=== PATIENT | female | born 1985 | race Caucasian/White ===

== ENCOUNTER 2017-09-01 13:59 | Inpatient (IN) | payer OTHER ==
--- NOTE | 2017-09-01 15:17 | PDOC ---
History of Present Illness - General Chief Complaint: Edema Stated Complaint: SWELLING TO EYE Time Seen by Provider: 09/01/17 14:25 History Source: Patient Exam Limitations: No Limitations - History of Present Illness Initial Comments: This is a 32 YOF with h/o gestational DM who p/w 3 days of swollen right facial pimple with acute worsening of the swelling this morning when she awakened. She notes that she was squeezing the pimple (located just right of the nose) over the past three days. The swelling spread from the locale of the pimple all the way to her right restoration this morning, and the patient notes it is difficult to keep her right eye open d/t the swelling. She notes chills last night, as well as a generalized headache over the past week (attributes this to finals week in school), but denies any vision changes, fever, nausea, vomiting, diarrhea, difficulty speaking or swallowing, swelling to the floor of her mouth, throat closing sensation, SOB, or chest pain. She has never had these symptoms before, and denies any h/o MRSA infection or immune compromise. Past History - Past Medical History Allergies/Adverse Reactions: Allergies Allergy/AdvReac Type Severity Reaction Status Date / Time No Known Drug Allergies Allergy Verified 09/01/17 14:16 berries, apples, cherries Allergy Severe anaphylaxis Uncoded 09/01/17 14:16 Home Medications: Ambulatory Orders NK [No Known Home Medication] 09/01/17 Asthma: No Cancer: No Cardiac Disorders: No COPD: No Diabetes: No HTN: No Seizures: No Thyroid Disease: No Other medical history: denies. - Surgical History GI Surgery: Yes (gastric sleeve) - Reproductive History (#): 2 Para: 0 Therapeutic (s) & number: No Spontaneous : 1 - Suicide/Smoking/Psychosocial Hx Smoking Status: No Smoking History: Never smoked Number of Cigarettes Smoked Daily: 0 Hx Alcohol Use: No Drug/Substance Use Hx: No Hx Substance Use Treatment: No Review of Systems - Review of Systems Able to Perform ROS?: Yes Constitutional: Yes: Chills (last night, resolved). No: Fever, Unexplained wgt Loss HEENTM: Yes: Other (facial pain/swelling). No: Nose Congestion, Throat Pain Respiratory: No: Cough, Shortness of Breath Cardiac (ROS): No: Chest Pain, Palpitations ABD/GI: No: Constipated, Diarrhea, Nausea, Vomiting : No: Burning, Dysuria Musculoskeletal: No: Back Pain, Neck Pain Integumentary: No: Bruising, Rash Neurological: No: Headache, Numbness, Tingling, Weakness, Dizziness Endocrine: No: Unexplained Weight Gain, Unexplained Weight Loss *Physical Exam - Vital Signs Last Vital Signs Temp Pulse Resp BP Pulse Ox 98.7 F 76 16 114/68 99 09/01/17 14:16 09/01/17 14:16 09/01/17 14:16 09/01/17 14:16 09/01/17 14:16 - Physical Exam General Appearance: Yes: Nourished, Other (generally well appearing adult female answering questions appropriately, obvious right superior facial swelling extending from the right lateral inferior nose to the superior right restoration, eyelid swollen almost shut). No: Apparent Distress HEENT: positive: EOMI, Normal Voice, Hearing Grossly Normal, Other (no trismus, no drooling, tolerating secretions). negative: Scleral Icterus (R), Scleral Icterus (L), Nasal Congestion Neck: positive: Trachea midline, Supple. negative: Tender, Rigid Respiratory/Chest: positive: Lungs Clear, Normal Breath Sounds. negative: Respiratory Distress, Crackles, Rhonchi, Stridor, Wheezing Cardiovascular: positive: Regular Rhythm, Regular Rate. negative: Murmur Gastrointestinal/Abdominal: positive: Normal Bowel Sounds, Soft. negative: Tender, Organomegaly, Pulsatile Mass, Guarding Musculoskeletal: positive: Normal Inspection. negative: Decreased Range of Motion, Vertebral Tenderness Extremity: positive: Normal Capillary Refill, Normal Inspection, Normal Range of Motion. negative: Tender, Cyanosis Integumentary: positive: Normal Color, Dry, Warm. 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 Initial Vital Signs Temp Pulse Resp BP Pulse Ox 98.7 F 76 16 114/68 99 09/01/17 14:16 09/01/17 14:16 09/01/17 14:16 09/01/17 14:16 09/01/17 14:16 Exam: no trismus, no drooling, tolerating secretions, obvious right superior facial swelling extending from the right lateral inferior nose to the superior right restoration, eyelid swollen almost shut DDX IBNLT: simple facial cellulitis, preseptal cellulitis septal cellulitis, gangrenous or necrotizing soft tissue infection, intracerebral involvement i.e. meninges or cerebral venous sinus, etc. W/U ordered: CBCD CMP serum preg BCx CT Head and Facial Bones TX ordered: Clindamycin (1st like tx for preseptal cellulitis) Laboratory Tests 09/01/17 09/01/17 09/01/17 15:40 15:40 15:40 WBC 11.4 H RBC 3.76 Hgb 11.6 Hct 34.9 MCV 93.0 MCH 30.9 MCHC 33.2 RDW 12.4 D Plt Count 216 D MPV 9.1 D Neutrophils % 70.2 Lymphocytes % 18.5 D Monocytes % 9.1 Eosinophils % 1.8 Basophils % 0.4 Sodium 141 Potassium 4.0 Chloride 106 Carbon Dioxide 29 Anion Gap 6 L BUN 15 Creatinine 0.7 Creat Clearance w eGFR > 60 Random Glucose 76 Calcium 8.7 Total Bilirubin 0.4 D AST 12 L ALT 28 Alkaline Phosphatase 70 Total Protein 7.2 Albumin 3.6 Total Amylase 68 Serum , Qual Negative 09/01/17 15:40 WBC RBC Hgb Hct MCV MCH MCHC RDW Plt Count MPV Neutrophils % Lymphocytes % Monocytes % Eosinophils % Basophils % Sodium Potassium Chloride Carbon Dioxide Anion Gap BUN Creatinine Creat Clearance w eGFR Random Glucose Calcium Total Bilirubin AST ALT Alkaline Phosphatase Total Protein Albumin Total Amylase Cancelled Serum , Qual CT: Repeat VS: Reassessment: The patient is unsafe for discharge at this time. They require further hospital observation, workup, and treatment. Microblog sent to [facility] for admission. Spoke with [facility], in agreement patient to be admitted to: Med/Surg Obs Decision to Admit order placed to [facility] covering attending Dr. Craig. *DC/Admit/Observation/Transfer Diagnosis at time of Disposition: Facial cellulitis - Discharge Dispostion Condition at time of disposition: Guarded Decision to Admit order: Yes - Referrals Referrals: Ethan Parsons [Primary Care Provider] - - Patient Instructions - Post Discharge Activity
[2017-09-01 15:48] LABS: BASO % 0.4 % (0-2.0); EOS % 1.8 % (0-4.5); HEMATOCRIT 34.9 % (32.4-45.2); HEMOGLOBIN 11.6 GM/dL (10.7-15.3); LYMPH % 18.5 % (8-40); MCH 30.9 pg (25.7-33.7); MCHC 33.2 g/dl (32.0-36.0); MEAN PLT VOLUME 9.1 fl (7.5-11.1); MONO % 9.1 % (3.8-10.2); NEUT % 70.2 % (42.8-82.8); PLATELET COUNT 216 K/MM3 (134-434); RBC 3.76 M/mm3 (3.60-5.2); RDW 12.4 % (11.6-15.6); WHITE BLOOD COUNT 11.4 K/mm3 (4.0-10.0)
[2017-09-01 16:15] LABS: ALBUMIN 3.6 g/dl (3.4-5.0); AMYLASE 68 U/L (25-115); ANION GAP 6 (8-16); BILIRUBIN,TOTAL 0.4 mg/dL (0.2-1.0); BLOOD UREA NITROGEN 15 mg/dL (7-18); CALCIUM 8.7 mg/dL (8.5-10.1); CHLORIDE 106 mmol/L (98-107); CO2 29 mmol/L (21-32); CREATININE 0.7 mg/dL (0.55-1.02); GLUCOSE,RANDOM 76 mg/dL (74-106); SGOT/AST 12 U/L (15-37); SODIUM 141 mmol/L (136-145); TOT PROT 7.2 g/dl (6.4-8.2)
[2017-09-01 16:22] LABS: ALK PHOS 70 U/L (45-117)
[2017-09-01 16:27] LABS: SGPT/ALT 28 U/L (12-78)
--- NOTE | 2017-09-01 17:58 | PDOC ---
Attending Attestation - Resident Resident Name: Karlie Fleming - ED Attending Attestation I have performed the following: I have examined & evaluated the patient, The case was reviewed & discussed with the resident, I agree w/resident's findings & plan, Exceptions are as noted - HPI HPI: 09/01/17 17:17 "Pt is a 32 yo F with no PMHx who presents to the ED with R facial swelling. Patient states that she noticed a pimple there 2 days ago. She reports squeezing the pimple several times for relief however the area became more erythematous and swollen. Today pt states the right side of her face became very swollen and painful. Pt denies F/C. Denies any purulent drainage. Denies pain in her eye. Denies pain with EOM. Denies blurred vision. Pt denies h/o allergic reactions, denies taking any new medications or eating new foods. PCP: Dr. Ethan Parsons " - Physicial Exam PE: 09/01/17 17:18 "GENERAL: Awake, alert, and fully oriented, in no acute distress. HEAD: No signs of trauma EYES: PERRLA, EOMI, sclera anicteric, conjunctiva clear ENT: + R cheek with edema and tenderness, no fluctuance, no drainage NECK: Nontender, no stepoffs, Normal ROM, supple, no lymphadenopathy, JVD, or masses LUNGS: Breath sounds equal, clear to auscultation bilaterally. No wheezes, and no crackles HEART: Regular rate and rhythm, normal S1 and S2, no murmurs, rubs or gallops ABDOMEN: Soft, nontender, normoactive bowel sounds. No guarding, no rebound. No masses EXTREMITIES: Normal range of motion, no edema. No clubbing or cyanosis. No cords, erythema, or tenderness NEUROLOGICAL: Cranial nerves II through XII intact. 5/5 strength and sensation in all extremities, Normal speech, normal gait, normal cerebellar function SKIN: Warm, Dry, normal turgor, no rashes or lesions noted. " - Medical Decision Making 09/01/17 18:24 32 F with facial cellulitis and possible preseptal cellulitis. No evidence of orbital cellulitis on exam. No evidence of systemic illness. - Labs, cultures - CT facial bones - IV abx - admit obs
[2017-09-01] MEDS ORDERED: CLINDAMYCIN IVPB 300 MG in DEXTROSE 5%-WATER - 48 ML IVPB ONE (17:59)
[2017-09-01] MEDS ORDERED: CLINDAMYCIN PHOSPHATE 600 MG/4 ML VIAL ONE (19:13)
--- NOTE | 2017-09-01 19:21 | HP ---
CHIEF COMPLAINT: facial swelling PCP: Bariatric Surgeon: Dr. Hess at [facility] HISTORY OF PRESENT ILLNESS: 32yo woman with PMH of Gestational DM who presented to ED with 3 days of worsening R facial swelling after extracting pimple near R naso-labial fold. She endorses subjective fever and chills last night. The swelling had spread to eye and R confucianism today, which prompted her to seek medical attention. She c/o of difficulty opening R eye due to swelling, but denies any changes in vision or pain with eye movement. Denies any difficulty swallowing or speaking or sore throat. Patient was taking Motrin 800mg at home for pain relief with good effect. ER course was notable for: (1) Non-con CT Maxillofacial: R facial/periorbital soft tissue swelling extending into R infratemporal fossa/lateral to R maxillary sinus; + submandibular/cervical prominent LNs (2) 1 x Clindamycin IV (3) Recent Travel: none PAST MEDICAL HISTORY: see HPI PAST SURGICAL HISTORY: gastric sleeve - 10/2016 x1 breast reduction Social History: Smoking: denies Alcohol: none Drugs: none Family History: non-contributory Allergies No Known Drug Allergies Allergy (Verified 09/01/17 14:16) berries, apples, cherries Allergy (Severe, Uncoded 09/01/17 14:16) anaphylaxis HOME MEDICATIONS: Home Medications Medication Instructions Recorded NK [No Known Home Medication] 09/01/17 REVIEW OF SYSTEMS CONSTITUTIONAL: +fever, chills Absent: diaphoresis, generalized weakness, malaise, loss of appetite, weight change HEENT: Absent: rhinorrhea, nasal congestion, throat pain, throat swelling, difficulty swallowing, mouth swelling, ear pain, eye pain, visual changes CARDIOVASCULAR: Absent: chest pain, syncope, palpitations, irregular heart rate, lightheadedness , peripheral edema RESPIRATORY: Absent: cough, shortness of breath, dyspnea with exertion, orthopnea, wheezing, stridor, hemoptysis GASTROINTESTINAL: Absent: abdominal pain, abdominal distension, nausea, vomiting, diarrhea, constipation, melena, hematochezia GENITOURINARY: Absent: dysuria, frequency, urgency, hesitancy, hematuria, flank pain, genital pain MUSCULOSKELETAL: Absent: myalgia, arthralgia, joint swelling, back pain, neck pain SKIN: Absent: rash, itching, pallor HEMATOLOGIC/IMMUNOLOGIC: Absent: easy bleeding, easy bruising, lymphadenopathy, frequent infections ENDOCRINE: Absent: unexplained weight gain, unexplained weight loss, heat intolerance, cold intolerance NEUROLOGIC: +headache Absent:, focal weakness or paresthesias, dizziness, unsteady gait, seizure, mental status changes, bladder or bowel incontinence PSYCHIATRIC: Absent: anxiety, depression, suicidal or homicidal ideation, hallucinations. PHYSICAL EXAMINATION Vital Signs - 24 hr 09/01/17 14:16 Temperature 98.7 F Pulse Rate 76 Respiratory 16 Rate Blood Pressure 114/68 O2 Sat by Pulse 99 Oximetry (%) GENERAL: aaox3, nad, eating Fuentes[employer] HEENT: +R upper facial swelling occluding partially occluding R eye, +erythema/ warmth/ttp, EOMI, sclera anicteric, conjunctiva clear, oropharynx clear without exudates NECK: supple, +R submandibular LAD LUNGS: CTAB HEART: rrr, normal s1/s2, no m/r/g ABDOMEN: Soft, NTND LOWER EXTREMITIES: 2+ DP pulses, wwp, no edema NEUROLOGICAL: Cranial nerves II-XII grossly intact, but exam limited to due facial swelling; sensation grossly intact. Normal speech. SKIN: Warm, dry, normal turgor, no rashes or ecchymosis noted CBC, BMP 09/01/17 15:40 09/01/17 15:40 Hepatic Panel Total Bilirubin 0.4 mg/dL (0.2-1.0) D 09/01/17 15:40 AST 12 U/L (15-37) L 09/01/17 15:40 ALT 28 U/L (12-78) 09/01/17 15:40 Alkaline Phosphatase 70 U/L (45-117) 09/01/17 15:40 Albumin 3.6 g/dl (3.4-5.0) 09/01/17 15:40 Laboratory Tests 09/01/17 15:40 Serum , Qual Negative ASSESSMENT/PLAN: 32yo woman who presents with R facial cellulitis x 3 days. #R facial cellulitis with periorbital swelling -ID consulted -Received 1x Clindamycin in ED. Will give 1x dose Vancomycin and Zosyn now. -F/u blood cultures -Check hgb A1c -Trend WBC/fever curve #FEN NS 500c IV bolus + encourage PO intake lytes wnl Regular diet #PPX - HSQ Q8H #DISPO: med/surg FULL code Plan d/w Dr. Magi Hawkins MD PGY1 - Internal Medicine, Night [employer] Visit type - Emergency Visit Emergency Visit: Yes ED Registration Date: 09/01/17 Care time: The patient presented to the Emergency Department on the above date and was hospitalized for further evaluation of their emergent condition. - New Patient This patient is new to me today: Yes Date on this admission: 09/01/17 - Critical Care Critical Care patient: No Hospitalist Screening - Colonoscopy Questionnaire Colonoscopy Questionnaire: Colonoscopy Questionnaire - Patient: 50 - 75 years old and never had a screening colonoscopy: No History of colon or rectal polyps, or CA: Unknown History of IBD, Crohn's disease or UC: Unknown History of abdominal radiation therapy as a child: Unknown - Relative: 1 with colon or rectal CA, or polyps at age 60 or younger: Unknown Colon or rectal CA diagnosed at age 45 or younger: Unknown Multiple relatives with colon or rectal CA: Unknown - Outcome: Screening Result: Negative Screen
[2017-09-01] MEDS ORDERED: KETOROLAC TROMETHAMINE 15 MG/ML VIAL IVPUSH ONE (20:39)
[2017-09-01] MEDS ORDERED: KETOROLAC TROMETHAMINE 15 MG/ML VIAL ONE (20:40)
[2017-09-01] MEDS ORDERED: SODIUM CHLORIDE 500 ML IV STA (20:45)
--- NOTE | 2017-09-01 20:57 | PN ---
Teaching Attending Note Name of Resident: Tiffanie Hawkins ATTENDING PHYSICIAN STATEMENT I saw and evaluated the patient. I reviewed the resident's note and discussed the case with the resident. I agree with the resident's findings and plan as documented. SUBJECTIVE: Patient is a 32 year old woman who presented with the chief complaint of right facial swelling for 3 days. It started after she squeezed a pimple on the right side of her face. She has a history of gestational DM. She has difficulty keeping he her right eye open due to the swelling. She has had associated chills and headache. OBJECTIVE: Alert and in no acute distress. Vital Signs Period Temp Pulse Resp BP Sys/Vides Pulse Ox Last 24 Hr 98.7 F 76 16 114/68 99 HEENT: Right upper facial swelling with erythema and tenderness; occlusion of the right eye. No Jaundice, or eye discharge, External ears are normal and hearing is grossly intact. No nasal discharge. Neck: Supple, nontender. No palpable adenopathy or thyromegaly. No JVD Chest: Good effort. Clear to auscultation and percussion. Heart: Regular. No S3, rub or murmur Abdomen: Not distended, soft, nontender and no HSM Ext: Peripheral pulses intact. No leg edema. Skin: Warm and dry. No petechiae, rash or ecchymosis. Neuro: Alert. Oriented x3. CN 2-12 grossly intact. Sensation grossly intact in all four extremities and DTR are symmetric. Laboratory Results - last 24 hr 09/01/17 09/01/17 09/01/17 15:40 15:40 15:40 WBC 11.4 H RBC 3.76 Hgb 11.6 Hct 34.9 MCV 93.0 MCH 30.9 MCHC 33.2 RDW 12.4 D Plt Count 216 D MPV 9.1 D Neutrophils % 70.2 Lymphocytes % 18.5 D Monocytes % 9.1 Eosinophils % 1.8 Basophils % 0.4 Sodium 141 Potassium 4.0 Chloride 106 Carbon Dioxide 29 Anion Gap 6 L BUN 15 Creatinine 0.7 Creat Clearance w eGFR > 60 Random Glucose 76 Calcium 8.7 Total Bilirubin 0.4 D AST 12 L ALT 28 Alkaline Phosphatase 70 Total Protein 7.2 Albumin 3.6 Total Amylase 68 Serum , Qual Negative 09/01/17 15:40 WBC RBC Hgb Hct MCV MCH MCHC RDW Plt Count MPV Neutrophils % Lymphocytes % Monocytes % Eosinophils % Basophils % Sodium Potassium Chloride Carbon Dioxide Anion Gap BUN Creatinine Creat Clearance w eGFR Random Glucose Calcium Total Bilirubin AST ALT Alkaline Phosphatase Total Protein Albumin Total Amylase Cancelled Serum , Qual Current Medications Generic Name Dose Route Start Last Admin Trade Name Freq PRN Reason Stop Dose Admin Acetaminophen 650 mg 09/01/17 20:45 Tylenol - PO Q4H PRN PAIN LEVEL 1-5 Heparin Sodium (Porcine) 5,000 unit 09/02/17 02:00 Heparin - SQ Q8H-IV WERNER Sodium Chloride 500 mls @ 500 mls/hr 09/01/17 20:45 Normal Saline - IV 09/01/17 21:44 ASDIR STA Vancomycin HCl 1,250 mg/ 250 mls @ 250 mls/2 hr 09/01/17 20:48 Dextrose IVPB 09/01/17 22:47 ONCE ONE Protocol Piperacillin Sod/Tazobactam 50 mls @ 100 mls/hr 09/01/17 20:51 Sod 3.375 gm/ Dextrose IVPB 09/01/17 21:20 ONCE ONE Protocol Home Medications Medication Instructions Recorded NK [No Known Home Medication] 09/01/17 ASSESSMENT AND PLAN: 1. Facial Cellulitis - Patient with right facial cellulitis being admitted as an inpatient because she will require IV antibiotics and close monitoring. Being started on IV vancomycin and Zosyn. Cold compress for comfort and tylenol for pain. ID consult requested. The risks of spread to the brain and the eye explained to the patient. 2. Gestational DM - Will get HbA1c and weight loss counselor patient about lifestyle modifications to reduce risk of DM - in view of her high BMI. 3. DVT prophylaxis - heparin 5000u sq tid. 4. Advance directives - Full code.
[2017-09-01] MEDS ORDERED: VANCOMYCIN 1,250 MG in DEXTROSE 5%-WATER - 250 ML IVPB ONE (21:00)
[2017-09-01] MEDS ORDERED: PIPERACILLIN/TAZOB 3.375 GM 3.375 GM in DEXTROSE 5%-WATER - 50 ML IVPB ONE (21:00)
[2017-09-01 21:08] LABS: INR 1.33 (0.82-1.09)
[2017-09-01] MEDS ORDERED: PIPERACILLIN/TAZOB 3.375 GM 3.375 GM/50 ML BAG IVPB ONE (21:50)
[2017-09-02] MEDS ORDERED: ACETAMINOPHEN 325 MG TABLET (FP) ONE ×2 (00:12→07:51)
[2017-09-02] MEDS: ACETAMINOPHEN 325 MG TABLET (FP) PO PRN ×4 (00:15→23:45)
[2017-09-02 06:34] LABS: BASO % 0.7 % (0-2.0); EOS % 1.8 % (0-4.5); HEMATOCRIT 35.4 % (32.4-45.2); HEMOGLOBIN 12.1 GM/dL (10.7-15.3); LYMPH % 18.5 % (8-40); MCH 31.8 pg (25.7-33.7); MCHC 34.2 g/dl (32.0-36.0); MONO % 9.3 % (3.8-10.2); NEUT % 69.7 % (42.8-82.8); PLATELET COUNT 190 K/MM3 (134-434); RBC 3.81 M/mm3 (3.60-5.2); RDW 12.6 % (11.6-15.6); WHITE BLOOD COUNT 10.5 K/mm3 (4.0-10.0)
[2017-09-02 07:00] LABS: ALBUMIN 3.2 g/dl (3.4-5.0); ANION GAP 3 (8-16); BLOOD UREA NITROGEN 14 mg/dL (7-18); CALCIUM 8.4 mg/dL (8.5-10.1); CHLORIDE 107 mmol/L (98-107); CO2 31 mmol/L (21-32); GLUCOSE,RANDOM 89 mg/dL (74-106); POTASSIUM 4.2 mmol/L (3.5-5.1); SODIUM 141 mmol/L (136-145)
[2017-09-02 07:03] LABS: ALK PHOS 66 U/L (45-117); BILIRUBIN,TOTAL 0.6 mg/dL (0.2-1.0); CREATININE 0.7 mg/dL (0.55-1.02); SGOT/AST 11 U/L (15-37); SGPT/ALT 16 U/L (12-78); TOT PROT 6.7 g/dl (6.4-8.2)
[2017-09-02] MEDS ORDERED: PIPERACILLIN/TAZOB 3.375 GM 3.375 GM in DEXTROSE 5%-WATER - 50 ML IVPB ONE ×2 (07:15→14:39)
[2017-09-02] MEDS: HEPARIN NA (PORCINE) 5,000 UNITS/ML 1ML VIAL SQ SCH ×3 (13:01→21:20)
[2017-09-02] MEDS ORDERED: CLINDAMYCIN 900 MG PREMIX IVPB 900 MG/50 ML BAG IVPB ONE (15:20)
[2017-09-02] MEDS ORDERED: PIPERACILLIN/TAZOB 4.5 GM 4.5 GM in DEXTROSE 5%-WATER 100 ML IVPB SCH ×3 (15:30→16:30)
--- NOTE | 2017-09-02 16:27 | PN ---
Teaching Attending Note Name of Resident: Stephanie Simpson ATTENDING PHYSICIAN STATEMENT I saw and evaluated the patient. I reviewed the resident's note and discussed the case with the resident. I agree with the resident's findings and plan as documented. SUBJECTIVE:c/o worsening swelling of the R side of her face worse than yesterday. pain is worse as well but improves with tylenol. states she only used her fingers in attempt to pop the pimple on her face and did not use a needle or something else to try to teresa it. denies CP, SOB, fever, chills, N/V/ C/D OBJECTIVE: Last Vital Signs Temp Pulse Resp BP Pulse Ox 98.7 F 91 H 20 125/74 96 09/02/17 14:34 09/02/17 14:34 09/02/17 14:34 09/02/17 14:34 09/02/17 07:17 General NAD HEENT R periorbital swelling with erythema on the zygomatic arch. pimple noted at base of R side of nare. area is warm but not tender. R eye EOMI, PERRL ASSESSMENT AND PLAN: 32yo F with PMH gestational DM presented to the ER with R facial swelling 1. Preseptal cellulitis- swelling reported worse than yesterday. received clinda /zosyn/vanco in the ER. will cont clinda and zosyn at this time. CT negative for abscess formation. ID consulted. f/u Cx 2. gestational DM- would check A1c 3. DVT ppx- hep sq
[2017-09-02] MEDS ORDERED: PIPERACILLIN/TAZOBACTAM 4.5 GM VIAL IVPB ONE (16:32)
[2017-09-02] MEDS ORDERED: DEXTROSE 5%-WATER 100 ML IVPB ONE (16:33)
[2017-09-02] MEDS: SODIUM CHLORIDE 0.45% 1,000 ML IV SCH (16:35)
[2017-09-02 17:30] VITALS: BMI 31.1
--- NOTE | 2017-09-02 17:47 | CON.ID ---
Consult Consult Specialty:: infectious diseases Reason for Consultation:: facial swelling rt with preseptal cellulittis with abscess formation on the rt side of the face - History of Present Illness Chief Complaint: facial swelling and not being able to opent he rt eye History of Present Illness: 32yo woman with PMH of Gestational DM admitted with 3 days of worsening R facial swelling after extracting pimple near R naso-labial fold. She endorses subjective fever and chills last night. The swelling had spread to eye and R evangelical today, which prompted her to seek medical attention. She c/o of difficulty opening R eye due to swelling, but denies any changes in vision or pain with eye movement. patient when seen also has pus coming out from the site of the pimple where she poked it patient otherwise has no issues - History Source History Provided By: Patient Limitations to Obtaining History: No Limitations - Past Medical History ...LMP: 02/14/13 ...LMP Comment: 08/13/2017 ...: No - Alcohol/Substance Use Hx Alcohol Use: No - Smoking History Smoking history: Never smoked Have you smoked in the past 12 months: No Aproximately how many cigarettes per day: 0 Home Medications - Allergies Allergies/Adverse Reactions: Allergies Allergy/AdvReac Type Severity Reaction Status Date / Time No Known Drug Allergies Allergy Verified 09/01/17 14:16 berries, apples, cherries Allergy Severe anaphylaxis Uncoded 09/01/17 14:16 - Home Medications Home Medications: Ambulatory Orders NK [No Known Home Medication] 09/01/17 Family Disease History - Family Disease History Family Disease History: Other: Grandparent (HTN, CVA) Review of Systems - Review of Systems Constitutional: reports: No Symptoms Eyes: reports: No Symptoms HENT: reports: Other (rt facial swelling with pus coming from nasolabial fold orbital swelling right preseptal cellulitis) Neck: reports: No Symptoms Cardiovascular: reports: No Symptoms Respiratory: reports: No Symptoms Gastrointestinal: reports: No Symptoms Genitourinary: reports: No Symptoms Musculoskeletal: reports: No Symptoms Integumentary: reports: No Symptoms Neurological: reports: No Symptoms Endocrine: reports: No Symptoms Hematology/Lymphatic: reports: No Symptoms Psychiatric: reports: No Symptoms Physical Exam Vital Signs: Vital Signs Temperature 99.4 F 09/02/17 16:43 Pulse Rate 89 09/02/17 16:43 Respiratory Rate 20 09/02/17 16:43 Blood Pressure 145/90 09/02/17 16:43 O2 Sat by Pulse Oximetry (%) 100 09/02/17 16:43 Constitutional: Yes: Well Nourished, Calm, Mild Distress Eyes: Yes: Conjunctiva Clear HENT: Yes: Other (rt sided facial swelling with pus coming from the rt nasolabial fold site where she poked her pimple) Neck: Yes: Supple, Trachea Midline Cardiovascular: Yes: Regular Rate and Rhythm Respiratory: Yes: Regular, CTA Bilaterally Gastrointestinal: Yes: Normal Bowel Sounds, Soft Musculoskeletal: Yes: WNL Extremities: Yes: WNL Wound/Incision: Yes: Draining Neurological: Yes: Alert, Oriented Psychiatric: Yes: Alert, Oriented Labs: CBC, BMP 09/02/17 06:08 09/02/17 06:08 Imaging - Results Cat Scan: Report Reviewed, Image Reviewed Assessment/Plan patient with preseptall cellulitits and rt facial cellulittis with abscess formation and drainge from the pimple site facial cellulitis abscess of the face plan will start on dual coverage also i ahve send the pus for culture we should get a surgeon as i think patient is going to need draiange rest continue current mgmt and close watch if patient detoriates surgey await for cx reports
--- NOTE | 2017-09-02 18:07 | EKG ---
Test Reason : Blood Pressure : / mmHG Vent. Rate : 076 BPM Atrial Rate : 076 BPM P-R Int : 158 ms QRS Dur : 066 ms QT Int : 370 ms P-R-T Axes : 036 043 021 degrees QTc Int : 416 ms NORMAL SINUS RHYTHM NORMAL ECG WHEN COMPARED WITH ECG OF 26-JUL-2011 01:36, NO SIGNIFICANT CHANGE WAS FOUND Confirmed by LOLY ARORA MD ([id number]) on 09/02/2017 6:07:21 PM Referred By: Confirmed By:LOLY ARORA MD
--- NOTE | 2017-09-02 20:02 | PN ---
Physical Exam: SUBJECTIVE: Patient seen and examined. Had chills prior to presentation, but no fevers. Feels the swelling has increased compared to prior, but is able to see and move the eyeball. Just received pain meds prior to being seen so was not in any pain. OBJECTIVE: Vital Signs Period Temp Pulse Resp BP Sys/Vides Pulse Ox Last 24 Hr 98.4 F-99.4 F 83-91 16-20 125-145/74-90 96-100 Vital Signs Temp 99.4 F 09/02/17 16:43 Pulse 89 09/02/17 16:43 Resp 20 09/02/17 16:43 BP 145/90 09/02/17 16:43 Pulse Ox 100 09/02/17 16:43 Intake & Output 09/01/17 09/02/17 09/02/17 23:59 11:59 23:59 Intake Total 100 Balance 100 Weight 77.111 kg 79.832 kg Intake: IVPB 100 Other: Voiding Method Toilet Height 1.6 m 1.6 m Body Mass Index (BMI) 30.1 31.1 Weight Measurement Method Est/Stated by Patient GENERAL: The patient is awake, alert, and fully oriented, in no acute respiratory or painful distress. HEAD: Normal with no signs of trauma. EYES: Swollen R upper and lower eyelids and cheek. Swelling is soft to palpation around the eyes, no erythema or discharge, no break in skin. Pustular pimple at R nasolabial angle. Firm surrounding swelling on R cheek. Patient is able move extraocular muscles, no eye pain. Normal vision. Able to open mouth. ENT: No nasal swelling or discharge NECK: supple. LUNGS: Breath sounds equal, clear to auscultation bilaterally, no wheezes, no crackles HEART: Regular rate and rhythm, S1, S2 without murmur ABDOMEN: Soft, nontender, nondistended, normoactive bowel sounds EXTREMITIES: 2+ pulses, warm, well-perfused, no edema. NEUROLOGICAL: AAOx3. Cranial nerves II through XII grossly intact. Laboratory Results - last 24 hr 09/01/17 09/02/17 09/02/17 20:20 06:08 06:08 WBC 10.5 H RBC 3.81 Hgb 12.1 Hct 35.4 MCV 93.0 MCH 31.8 MCHC 34.2 RDW 12.6 Plt Count 190 MPV 9.0 Neutrophils % 69.7 Lymphocytes % 18.5 Monocytes % 9.3 Eosinophils % 1.8 Basophils % 0.7 PT with INR 15.00 H INR 1.33 H Sodium 141 Potassium 4.2 Chloride 107 Carbon Dioxide 31 Anion Gap 3 L BUN 14 Creatinine 0.7 Creat Clearance w eGFR > 60 Random Glucose 89 Hemoglobin A1c % Calcium 8.4 L Total Bilirubin 0.6 D AST 11 L ALT 16 Alkaline Phosphatase 66 Total Protein 6.7 Albumin 3.2 L 09/02/17 06:08 WBC RBC Hgb Hct MCV MCH MCHC RDW Plt Count MPV Neutrophils % Lymphocytes % Monocytes % Eosinophils % Basophils % PT with INR INR Sodium Potassium Chloride Carbon Dioxide Anion Gap BUN Creatinine Creat Clearance w eGFR Random Glucose Hemoglobin A1c % 4.9 Calcium Total Bilirubin AST ALT Alkaline Phosphatase Total Protein Albumin Active Medications Generic Name Dose Route Start Last Admin Trade Name Freq PRN Reason Stop Dose Admin Acetaminophen 650 mg 09/01/17 20:45 09/02/17 14:07 Tylenol - PO 650 mg Q4H PRN Administration PAIN LEVEL 1-5 Heparin Sodium (Porcine) 5,000 unit 09/02/17 06:00 09/02/17 13:03 Heparin - SQ Not Given TID WERNER Sodium Chloride 1,000 mls @ 50 mls/hr 09/02/17 14:45 09/02/17 16:35 1/2 Normal Saline IV 50 mls/hr ASDIR WERNER Administration Clindamycin Phosphate 600 mg in 50 mls @ 100 mls/hr 09/03/17 02:00 Cleocin 600 Mg Premix Ivpb - IVPB Q8H-IV WERNER Protocol Piperacillin Sod/Tazobactam 50 mls @ 100 mls/hr 09/03/17 02:00 Sod 3.375 gm/ Dextrose IVPB Q8H-IV WERNER Protocol Non-con CT Maxillofacial: R facial/periorbital soft tissue swelling extending into R infratemporal fossa/lateral to R maxillary sinus; +submandibular/ cervical prominent LNs ASSESSMENT/PLAN: 32yo woman who presents with R preseptal/facial cellulitis x 3 days. #R facial cellulitis with periorbital swelling -ID consulted- Dr Sanchez -Received 1x Clindamycin in ED. Then 1x dose Vancomycin and 2x Zosyn . -F/u blood cultures -hgb A1c-4 (only had gestational diabetes) - WBC trending down -D/W Dr Sanchez will continue Zosyn 4.45 and clindamycin 900 -Plastics consult- Zurdo Curry ([phone]) -Tylenol for pain -Iv fluids #FEN Cont 1/2 NS Monitor lytes and replete as needed Regular diet #PPx Heparin SQ #Dispo: Med surg - Visit type - Emergency Visit Emergency Visit: Yes ED Registration Date: 09/01/17 Care time: The patient presented to the Emergency Department on the above date and was hospitalized for further evaluation of their emergent condition. - New Patient This patient is new to me today: Yes Date on this admission: 09/02/17 - Critical Care Critical Care patient: No - Discharge Referral Referred to [facility] No
[2017-09-03] MEDS ORDERED: DEXTROSE 5%-WATER - 50 ML IVPB ONE ×3 (00:46→18:51)
[2017-09-03] MEDS ORDERED: PIPERACILLIN/TAZOBACTAM 3.375 GM VIAL IVPB ONE ×3 (00:46→18:51)
[2017-09-03] MEDS: CLINDAMYCIN 600MG PREMIX IVPB 600 MG/50 ML BAG IVPB SCH ×3 (01:08→17:13)
[2017-09-03] MEDS: PIPERACILLIN/TAZOB 3.375 GM 3.375 GM in DEXTROSE 5%-WATER - 50 ML IVPB SCH ×3 (02:52→18:52)
[2017-09-03] MEDS: HEPARIN NA (PORCINE) 5,000 UNITS/ML 1ML VIAL SQ SCH ×3 (05:48→21:13)
--- NOTE | 2017-09-03 07:13 | PN ---
Physical Exam: SUBJECTIVE: Patient seen and examined. R face still swollen. Still able to see through the eye. Pus draining out of pimple spontaneously. No fevers, cough, sob overnight. OBJECTIVE: Vital Signs Period Temp Pulse Resp BP Sys/Vides Pulse Ox Last 24 Hr 98.4 F-99.4 F 68-91 16-20 123-145/74-90 96-100 Vital Signs Temp 98.4 F 09/03/17 06:00 Pulse 80 09/03/17 06:00 Resp 20 09/03/17 06:00 BP 123/76 09/03/17 06:00 Pulse Ox 100 09/02/17 20:14 Intake & Output 09/02/17 09/02/17 09/03/17 11:59 23:59 11:59 Intake Total 100 675 Balance 100 675 Weight 79.832 kg Intake: IV 575 1/2 Normal Saline 1,000 575 ml @ 50 mls/hr IV ASDIR WERNER Rx#:[id number] IVPB 100 100 Other: Voiding Method Toilet # Unmeasured Voids Void 2 Bowel Movement No Height 1.6 m Body Mass Index (BMI) 31.1 GENERAL: The patient is awake, alert, and fully oriented, in no acute respiratory distress. HEAD: R sided facial swelling EYES: PERRL, extraocular movements intact, swollen upper and lower eyelids. normal visual acuity, ENT: Pustular pimple R nasolabial angle. Spontaneously draining sanguinous pus. Swollen cheek and R eyelids. Improved from yesterday LUNGS: Breath sounds equal, clear to auscultation bilaterally HEART: Regular rate and rhythm, S1, S2 . ABDOMEN: Soft, nontender, nondistended, normoactive bowel sounds EXTREMITIES: 2+ pulses, warm, well-perfused, no edema. NEUROLOGICAL: Cranial nerves II through XII grossly intact. Normal speech, normal gait, normal vision, Extraocular muscles intact Laboratory Results - last 24 hr 09/02/17 06:08 Hemoglobin A1c % 4.9 Active Medications Generic Name Dose Route Start Last Admin Trade Name Freq PRN Reason Stop Dose Admin Acetaminophen 650 mg 09/01/17 20:45 09/02/17 23:45 Tylenol - PO 650 mg Q4H PRN Administration PAIN LEVEL 1-5 Heparin Sodium (Porcine) 5,000 unit 09/02/17 06:00 09/03/17 05:48 Heparin - SQ Not Given TID WERNER Sodium Chloride 1,000 mls @ 50 mls/hr 09/02/17 14:45 09/02/17 16:35 1/2 Normal Saline IV 50 mls/hr ASDIR WERNER Administration Clindamycin Phosphate 600 mg in 50 mls @ 100 mls/hr 09/03/17 02:00 09/03/17 01:08 Cleocin 600 Mg Premix Ivpb - IVPB 100 mls/hr Q8H-IV WERNER Administration Protocol Piperacillin Sod/Tazobactam 50 mls @ 100 mls/hr 09/03/17 02:00 09/03/17 02:52 Sod 3.375 gm/ Dextrose IVPB 100 mls/hr Q8H-IV WERNER Administration Protocol Non-con CT Maxillofacial: R facial/periorbital soft tissue swelling extending into R infratemporal fossa/lateral to R maxillary sinus; +submandibular/ cervical prominent LNs ASSESSMENT/PLAN: 32yo woman who presents with R preseptal/facial cellulitis x 3 days. #R facial cellulitis with periorbital swelling -ID consulted- Dr Sanchez - blood cultures- negative for now -hgb A1c-4 (only had gestational diabetes) -D/W Dr Sanchez will continue Zosyn 4.5 and clindamycin 900 -Plastics consult- Zurdo Curry ([phone])- -ENT consulted-warm compress cont antibiotics -Ophtho- cont current mx -Tylenol for pain -Iv fluids #FEN Monitor lytes and replete as needed Regular diet #PPx Heparin SQ #Dispo: Med surg Visit type - Emergency Visit Emergency Visit: Yes ED Registration Date: 09/01/17 Care time: The patient presented to the Emergency Department on the above date and was hospitalized for further evaluation of their emergent condition. - New Patient This patient is new to me today: No - Critical Care Critical Care patient: No - Discharge Referral Referred to [facility] Med [facility] No
[2017-09-03 08:16] LABS: BASO % 0.5 % (0-2.0); EOS % 2.6 % (0-4.5); HEMATOCRIT 32.8 % (32.4-45.2); HEMOGLOBIN 11.3 GM/dL (10.7-15.3); LYMPH % 21.1 % (8-40); MCHC 34.4 g/dl (32.0-36.0); MEAN CELL VOLUME 93.1 fl (80-96); MEAN PLT VOLUME 8.9 fl (7.5-11.1); MONO % 8.8 % (3.8-10.2); PLATELET COUNT 199 K/MM3 (134-434); RBC 3.52 M/mm3 (3.60-5.2); RDW 12.2 % (11.6-15.6); WHITE BLOOD COUNT 9.7 K/mm3 (4.0-10.0)
[2017-09-03 08:45] LABS: CHLORIDE 107 mmol/L (98-107); SODIUM 141 mmol/L (136-145)
[2017-09-03 10:04] LABS: ALBUMIN 3.2 g/dl (3.4-5.0); ALK PHOS 64 U/L (45-117); ANION GAP 5 (8-16); BILIRUBIN,TOTAL 0.5 mg/dL (0.2-1.0); BLOOD UREA NITROGEN 13 mg/dL (7-18); CALCIUM 8.4 mg/dL (8.5-10.1); CO2 29 mmol/L (21-32); CREATININE 0.7 mg/dL (0.55-1.02); GLUCOSE,RANDOM 80 mg/dL (74-106); MAGNESIUM 2.3 mg/dL (1.8-2.4); SGOT/AST 12 U/L (15-37); SGPT/ALT 17 U/L (12-78); TOT PROT 6.8 g/dl (6.4-8.2)
[2017-09-03] MEDS: SODIUM CHLORIDE 0.45% 1,000 ML IV SCH (10:27)
--- NOTE | 2017-09-03 14:55 | PN ---
Progress Note, Physician History of Present Illness: patients wound has been draining for all night swelling better patient able to open his eye comfortable - Current Medication List Current Medications: Active Medications Acetaminophen (Tylenol -) 650 mg PO Q4H PRN PRN Reason: PAIN LEVEL 1-5 Last Admin: 09/02/17 23:45 Dose: 650 mg Heparin Sodium (Porcine) (Heparin -) 5,000 unit SQ TID WERNER Last Admin: 09/03/17 14:10 Dose: Not Given Sodium Chloride (1/2 Normal Saline) 1,000 mls @ 50 mls/hr IV ASDIR WERNER Last Admin: 09/03/17 10:27 Dose: 50 mls/hr Clindamycin Phosphate (Cleocin 600 Mg Premix Ivpb -) 600 mg in 50 mls @ 100 mls /hr IVPB Q8H-IV WERNER PRN Reason: Protocol Last Admin: 09/03/17 10:25 Dose: 100 mls/hr Piperacillin Sod/Tazobactam (Sod 3.375 gm/ Dextrose) 50 mls @ 100 mls/hr IVPB Q8H-IV WERNER PRN Reason: Protocol Last Admin: 09/03/17 10:27 Dose: 100 mls/hr - Objective Vital Signs: Vital Signs Temperature 97.6 F 09/03/17 14:00 Pulse Rate 80 09/03/17 14:00 Respiratory Rate 20 09/03/17 14:00 Blood Pressure 145/95 09/03/17 14:00 O2 Sat by Pulse Oximetry (%) 98 09/03/17 09:00 Constitutional: Yes: No Distress, Calm Cardiovascular: Yes: Regular Rate and Rhythm Respiratory: Yes: Regular, CTA Bilaterally Gastrointestinal: Yes: Normal Bowel Sounds, Soft Genitourinary: Yes: WNL Musculoskeletal: Yes: WNL Extremities: Yes: WNL Neurological: Yes: Alert, Oriented Psychiatric: Yes: Alert, Oriented Labs: CBC, BMP 09/03/17 07:35 09/03/17 07:35 INR, PTT INR 1.33 (0.82-1.09) H 09/01/17 20:20 Assessment/Plan patient with preseptall cellulitits and rt facial cellulittis with abscess formation and drainge from the pimple site facial cellulitis abscess of the face plan continue abx await for cx results rest close monitoring and as per the team
--- NOTE | 2017-09-03 15:33 | PN ---
Teaching Attending Note Name of Resident: Stephanie Simpson ATTENDING PHYSICIAN STATEMENT I saw and evaluated the patient. I reviewed the resident's note and discussed the case with the resident. I agree with the resident's findings and plan as documented with exceptions below. SUBJECTIVE: Patient seen and examined. right facial swelling improved,able to open eyes better, no new fevers or chills, Feels better. OBJECTIVE: Vital Signs Period Temp Pulse Resp BP Sys/Vides Pulse Ox Last 24 Hr 97.6 F-99.4 F 68-89 18-20 123-145/74-95 98-100 Intake & Output 08/31/17 09/01/17 09/02/17 09/03/17 23:59 23:59 23:59 23:59 Intake Total 100 1275 Balance 100 1275 Weight 170 lb 176 lb General: sitting in bed in no acute distress HEENT: right facial periorbital swelling, area of induration and warmth lateral to right nasolabial fold with pimple, with minimal purulent drainage on expression, minimal tenderness (improved compared to images on admission, see on patient's phone with consent) EOMI, PERRL, vision intact Home Medication List Medication Instructions Recorded Confirmed Type NK [No Known Home Medication] 09/01/17 09/01/17 History Active Medications Generic Name Dose Route Start Last Admin Trade Name Shelton PRN Reason Stop Dose Admin Acetaminophen 650 mg 09/01/17 20:45 09/02/17 23:45 Tylenol - PO 650 mg Q4H PRN Administration PAIN LEVEL 1-5 Heparin Sodium (Porcine) 5,000 unit 09/02/17 06:00 09/03/17 14:10 Heparin - SQ Not Given TID WERNER Sodium Chloride 1,000 mls @ 50 mls/hr 09/02/17 14:45 09/03/17 10:27 1/2 Normal Saline IV 50 mls/hr ASDIR WERNER Administration Clindamycin Phosphate 600 mg in 50 mls @ 100 mls/hr 09/03/17 02:00 09/03/17 10:25 Cleocin 600 Mg Premix Ivpb - IVPB 100 mls/hr Q8H-IV WERNER Administration Protocol Piperacillin Sod/Tazobactam 50 mls @ 100 mls/hr 09/03/17 02:00 09/03/17 10:27 Sod 3.375 gm/ Dextrose IVPB 100 mls/hr Q8H-IV WERNER Administration Protocol Laboratory Results - last 24 hr 09/03/17 09/03/17 07:35 07:35 WBC 9.7 RBC 3.52 L Hgb 11.3 Hct 32.8 MCV 93.1 MCH 32.0 MCHC 34.4 RDW 12.2 Plt Count 199 MPV 8.9 Neutrophils % 67.0 Lymphocytes % 21.1 Monocytes % 8.8 Eosinophils % 2.6 Basophils % 0.5 Nucleated RBC % 0 Sodium 141 Potassium 4.0 Chloride 107 Carbon Dioxide 29 Anion Gap 5 L BUN 13 Creatinine 0.7 Creat Clearance w eGFR > 60 Random Glucose 80 Calcium 8.4 L Phosphorus 4.0 Magnesium 2.3 Total Bilirubin 0.5 AST 12 L ALT 17 Alkaline Phosphatase 64 Total Protein 6.8 Albumin 3.2 L Microbiology 09/02/17 18:00 Face Gram Stain - Final 09/01/17 15:40 Blood - Peripheral Venous Blood Culture - Preliminary NO GROWTH OBTAINED AFTER 24 HOURS, INCUBATION TO CONTINUE FOR 4 DAYS. 09/01/17 15:40 Blood - Peripheral Venous Blood Culture - Preliminary NO GROWTH OBTAINED AFTER 24 HOURS, INCUBATION TO CONTINUE FOR [address] face/brain noted ASSESSMENT AND PLAN: 32 yof with gestational DM, here with right facial/periorbital-preseptal cellulitis with likely developing abscess secondary to popping a pimple. -Acute right facial/periorbital-preseptal cellulitis with likely developing abscess secondary to popping a pimple -h/o gestational DM, A1c 4.9 Plan: Improved. Suspect developing abscess right cheek area next to pimple, warm compresses over the area, head end elevated. Patient educated on warning symptoms, if visual changes, pain with eye movements . PLastics. Dr. Curry contacted, advised ENT input. ENT consulted and case discussed. Anticipate with need eventual I&D. ID input noted. Wound/blood cx. Zosyn/clindamycin. DVTPPx, change to lovenox Dispo pending clinical improvement. Plan discussed with patient in detail, all questions answered.
[2017-09-03] MEDS: ACETAMINOPHEN 325 MG TABLET (FP) PO PRN (17:13)
[2017-09-04] MEDS ORDERED: PIPERACILLIN/TAZOBACTAM 3.375 GM VIAL IVPB ONE ×2 (00:37→09:43)
[2017-09-04] MEDS ORDERED: DEXTROSE 5%-WATER - 50 ML IVPB ONE ×2 (00:37→09:43)
[2017-09-04] MEDS: CLINDAMYCIN 600MG PREMIX IVPB 600 MG/50 ML BAG IVPB SCH ×3 (01:04→18:33)
[2017-09-04] MEDS: PIPERACILLIN/TAZOB 3.375 GM 3.375 GM in DEXTROSE 5%-WATER - 50 ML IVPB SCH ×2 (02:32→09:52)
[2017-09-04] MEDS: HEPARIN NA (PORCINE) 5,000 UNITS/ML 1ML VIAL SQ SCH ×2 (06:53→16:21)
--- NOTE | 2017-09-04 06:59 | PN ---
Physical Exam: SUBJECTIVE: Patient seen and examined OBJECTIVE: Vital Signs Period Temp Pulse Resp BP Sys/Vieds Pulse Ox Last 24 Hr 97.6 F-98.3 F 63-80 18-21 122-145/74-95 98-98 Vital Signs Temp 98.3 F 09/03/17 22:00 Pulse 63 09/03/17 22:00 Resp 21 09/03/17 22:00 BP 122/79 09/03/17 22:00 Pulse Ox 98 09/03/17 19:57 GENERAL: The patient is awake, alert, and fully oriented, in no acute distress. HEAD: Normal with no signs of trauma. EYES: PERRL, extraocular movements intact, sclera anicteric, conjunctiva clear. No ptosis. ENT: Ears normal, nares patent, oropharynx clear without exudates, moist mucous membranes. NECK: Trachea midline, full range of motion, supple. LUNGS: Breath sounds equal, clear to auscultation bilaterally, no wheezes, no crackles, no accessory muscle use. HEART: Regular rate and rhythm, S1, S2 without murmur, rub or gallop. ABDOMEN: Soft, nontender, nondistended, normoactive bowel sounds, no guarding, no rebound, no hepatosplenomegaly, no masses. EXTREMITIES: 2+ pulses, warm, well-perfused, no edema. NEUROLOGICAL: Cranial nerves II through XII grossly intact. Normal speech, gait not observed. PSYCH: Normal mood, normal affect. SKIN: Warm, dry, normal turgor, no rashes or lesions noted Laboratory Results - last 24 hr 09/03/17 09/03/17 07:35 07:35 WBC 9.7 RBC 3.52 L Hgb 11.3 Hct 32.8 MCV 93.1 MCH 32.0 MCHC 34.4 RDW 12.2 Plt Count 199 MPV 8.9 Neutrophils % 67.0 Lymphocytes % 21.1 Monocytes % 8.8 Eosinophils % 2.6 Basophils % 0.5 Nucleated RBC % 0 Sodium 141 Potassium 4.0 Chloride 107 Carbon Dioxide 29 Anion Gap 5 L BUN 13 Creatinine 0.7 Creat Clearance w eGFR > 60 Random Glucose 80 Calcium 8.4 L Phosphorus 4.0 Magnesium 2.3 Total Bilirubin 0.5 AST 12 L ALT 17 Alkaline Phosphatase 64 Total Protein 6.8 Albumin 3.2 L Active Medications Generic Name Dose Route Start Last Admin Trade Name Freq PRN Reason Stop Dose Admin Acetaminophen 650 mg 09/01/17 20:45 09/03/17 17:13 Tylenol - PO 650 mg Q4H PRN Administration PAIN LEVEL 1-5 Heparin Sodium (Porcine) 5,000 unit 09/02/17 06:00 09/04/17 06:53 Heparin - SQ Not Given TID WERNER Sodium Chloride 1,000 mls @ 50 mls/hr 09/02/17 14:45 09/03/17 10:27 1/2 Normal Saline IV 50 mls/hr ASDIR WERNER Administration Clindamycin Phosphate 600 mg in 50 mls @ 100 mls/hr 09/03/17 02:00 09/04/17 01:04 Cleocin 600 Mg Premix Ivpb - IVPB 100 mls/hr Q8H-IV WERNER Administration Protocol Piperacillin Sod/Tazobactam 50 mls @ 100 mls/hr 09/03/17 02:00 09/04/17 02:32 Sod 3.375 gm/ Dextrose IVPB 100 mls/hr Q8H-IV WERNER Administration Protocol Current Medications Acetaminophen (Tylenol -) 650 mg PO Q4H PRN PRN Reason: PAIN LEVEL 1-5 Last Admin: 09/03/17 17:13 Dose: 650 mg Heparin Sodium (Porcine) (Heparin -) 5,000 unit SQ TID WERNER Last Admin: 09/04/17 06:53 Dose: Not Given Sodium Chloride (1/2 Normal Saline) 1,000 mls @ 50 mls/hr IV ASDIR WERNER Last Admin: 09/03/17 10:27 Dose: 50 mls/hr Clindamycin Phosphate (Cleocin 600 Mg Premix Ivpb -) 600 mg in 50 mls @ 100 mls /hr IVPB Q8H-IV WERNER; Protocol Last Admin: 09/04/17 01:04 Dose: 100 mls/hr Piperacillin Sod/Tazobactam (Sod 3.375 gm/ Dextrose) 50 mls @ 100 mls/hr IVPB Q8H-IV WERNER; Protocol Last Admin: 09/04/17 02:32 Dose: 100 mls/hr ASSESSMENT/PLAN:
--- NOTE | 2017-09-04 07:33 | CON.ENT ---
Consult Consult Specialty:: ENT Reason for Consultation:: Facial Swelling - History of Present Illness Chief Complaint: Right Facial Swelling History of Present Illness: 32 yo female who presented with significant right sided facial swelling, pain after popping a pimple on the side of her nose. The pain, swelling progressed over the nasal dorsum and periocular area. She noted drainage from the wound site until late yesterday. She is feeling and looking much better since on IV Abx. CT scan of Face with soft tissue induration, no localized abscess noted - History Source History Provided By: Patient, Medical Record Limitations to Obtaining History: No Limitations - Past Medical History ...LMP: 02/14/13 ...LMP Comment: 08/13/2017 ...: No - Alcohol/Substance Use Hx Alcohol Use: No - Smoking History Smoking history: Never smoked Have you smoked in the past 12 months: No Aproximately how many cigarettes per day: 0 Home Medications - Allergies Allergies/Adverse Reactions: Allergies Allergy/AdvReac Type Severity Reaction Status Date / Time No Known Drug Allergies Allergy Verified 09/01/17 14:16 berries, apples, cherries Allergy Severe anaphylaxis Uncoded 09/01/17 14:16 - Home Medications Home Medications: Ambulatory Orders NK [No Known Home Medication] 09/01/17 Family Disease History - Family Disease History Family Disease History: Other: Grandparent (HTN, CVA) Review of Systems - Review of Systems HENT: reports: Other (facial swelling, tenderness) Physical Exam-ENT Vital Signs: Vital Signs Temperature 98.3 F 09/03/17 22:00 Pulse Rate 63 09/03/17 22:00 Respiratory Rate 21 09/03/17 22:00 Blood Pressure 122/79 09/03/17 22:00 O2 Sat by Pulse Oximetry (%) 98 09/03/17 19:57 Constitutional: Yes: Well Nourished, No Distress Head: Yes: WNL Face: Yes: Other (mild periocular edema on the right with maxillary fullness, small area of induration on right lateral nasolabial fold, punctate wound, no discharge, no fluctuance) Eyes: Yes: PERRL Nose: Yes: Pale Nasal Passage: Yes: WNL Oral/Pharynx: Yes: WNL Outer Ear: Yes: WNL Ear Canal: Yes: WNL Neck: Yes: Other (slightly tender shotty LNs) Neurological: Yes: Cran Nerves II-XII Intact Imaging - Results Cat Scan: Report Reviewed, Image Reviewed (No abscess) Problem List - Problems (1) Facial cellulitis Assessment/Plan: Improving facial cellulitis with IV Abx- resolving facial swelling, small area of induration lateral to nose. No fluctuance, no abscess. Continue warm compresses. Can switch to PO Abx as per ID. Follow-up with ENT upon discharge Code(s): L03.211 - CELLULITIS OF FACE
[2017-09-04 07:54] LABS: BASO % 0.8 % (0-2.0); EOS % 4.8 % (0-4.5); HEMATOCRIT 33.7 % (32.4-45.2); HEMOGLOBIN 11.4 GM/dL (10.7-15.3); LYMPH % 33.2 % (8-40); MCH 31.5 pg (25.7-33.7); MCHC 33.8 g/dl (32.0-36.0); MEAN CELL VOLUME 93.2 fl (80-96); MEAN PLT VOLUME 9.1 fl (7.5-11.1); MONO % 9.1 % (3.8-10.2); NEUT % 52.1 % (42.8-82.8); PLATELET COUNT 244 K/MM3 (134-434); RBC 3.62 M/mm3 (3.60-5.2); RDW 12.4 % (11.6-15.6); WHITE BLOOD COUNT 6.7 K/mm3 (4.0-10.0)
[2017-09-04 08:18] LABS: CHLORIDE 105 mmol/L (98-107); SODIUM 140 mmol/L (136-145)
[2017-09-04 08:26] LABS: ALBUMIN 3.2 g/dl (3.4-5.0); ALK PHOS 63 U/L (45-117); ANION GAP 6 (8-16); BILIRUBIN,TOTAL 0.5 mg/dL (0.2-1.0); BLOOD UREA NITROGEN 11 mg/dL (7-18); CALCIUM 8.5 mg/dL (8.5-10.1); CO2 29 mmol/L (21-32); CREATININE 0.7 mg/dL (0.55-1.02); GLUCOSE,RANDOM 76 mg/dL (74-106); MAGNESIUM 2.3 mg/dL (1.8-2.4); PHOSPHOROUS 4.2 mg/dL (2.5-4.9); SGOT/AST 15 U/L (15-37); SGPT/ALT 20 U/L (12-78); TOT PROT 6.9 g/dl (6.4-8.2)
--- NOTE | 2017-09-04 13:17 | PN ---
Progress Note, Physician History of Present Illness: swelling on the face markedly down still some drainage noted as opening has closed patient growing mrsa in the wound - Current Medication List Current Medications: Active Medications Acetaminophen (Tylenol -) 650 mg PO Q4H PRN PRN Reason: PAIN LEVEL 1-5 Last Admin: 09/03/17 17:13 Dose: 650 mg Heparin Sodium (Porcine) (Heparin -) 5,000 unit SQ TID WERNER Last Admin: 09/04/17 06:53 Dose: Not Given Clindamycin Phosphate (Cleocin 600 Mg Premix Ivpb -) 600 mg in 50 mls @ 100 mls /hr IVPB Q8H-IV WERNER; Protocol Last Admin: 09/04/17 09:51 Dose: 100 mls/hr - Objective Vital Signs: Vital Signs Temperature 98.4 F 09/04/17 06:00 Pulse Rate 78 09/04/17 10:00 Respiratory Rate 18 09/04/17 10:00 Blood Pressure 120/81 09/04/17 10:00 O2 Sat by Pulse Oximetry (%) 98 09/03/17 19:57 Constitutional: Yes: No Distress, Calm HENT: Yes: Other (rt facial swelling improving) Cardiovascular: Yes: Regular Rate and Rhythm Respiratory: Yes: Regular, CTA Bilaterally Gastrointestinal: Yes: Normal Bowel Sounds, Soft Musculoskeletal: Yes: WNL Extremities: Yes: WNL Neurological: Yes: Alert, Oriented Labs: CBC, BMP 09/04/17 07:25 09/04/17 07:25 INR, PTT INR 1.33 (0.82-1.09) H 09/01/17 20:20 Assessment/Plan patient with preseptall cellulitits and rt facial cellulittis with abscess formation and drainge from the pimple site facial cellulitis abscess of the face plan will stop zosyn continue clinda await for sensitivity report then will decide further plan mrsa wound now
--- NOTE | 2017-09-04 15:59 | PN ---
Teaching Attending Note Name of Resident: Stephanie Simpson ATTENDING PHYSICIAN STATEMENT I saw and evaluated the patient. I reviewed the resident's note and discussed the case with the resident. I agree with the resident's findings and plan as documented with exceptions below. SUBJECTIVE: Patient seen and examined. right facial swelling improved, no new complaints. OBJECTIVE: Vital Signs Period Temp Pulse Resp BP Sys/Vides Pulse Ox Last 24 Hr 98.3 F-98.7 F 63-78 18-21 115-122/61-81 98 Intake & Output 09/01/17 09/02/17 09/03/17 09/04/17 23:59 23:59 23:59 23:59 Intake Total 100 2275 1000 Balance 100 2275 1000 Weight 170 lb 176 lb General: sitting in bed in no acute distress HEENT: induration with mild tenderness over right cheek area with visible pimple , improved zohra-orbital swelling, EOMI, PERRL Home Medication List Medication Instructions Recorded Confirmed Type NK [No Known Home Medication] 09/01/17 09/01/17 History Active Medications Generic Name Dose Route Start Last Admin Trade Name Vasuq PRN Reason Stop Dose Admin Acetaminophen 650 mg 09/01/17 20:45 09/03/17 17:13 Tylenol - PO 650 mg Q4H PRN Administration PAIN LEVEL 1-5 Heparin Sodium (Porcine) 5,000 unit 09/02/17 06:00 09/04/17 06:53 Heparin - SQ Not Given TID WERNER Clindamycin Phosphate 600 mg in 50 mls @ 100 mls/hr 09/03/17 02:00 09/04/17 09:51 Cleocin 600 Mg Premix Ivpb - IVPB 100 mls/hr Q8H-IV WERNER Administration Protocol Laboratory Results - last 24 hr 09/04/17 09/04/17 07:25 07:25 WBC 6.7 D RBC 3.62 Hgb 11.4 Hct 33.7 MCV 93.2 MCH 31.5 MCHC 33.8 RDW 12.4 Plt Count 244 D MPV 9.1 Neutrophils % 52.1 D Lymphocytes % 33.2 D Monocytes % 9.1 Eosinophils % 4.8 H D Basophils % 0.8 Nucleated RBC % 0 Sodium 140 Potassium 4.0 Chloride 105 Carbon Dioxide 29 Anion Gap 6 L BUN 11 Creatinine 0.7 Creat Clearance w eGFR > 60 Random Glucose 76 Calcium 8.5 Phosphorus 4.2 Magnesium 2.3 Total Bilirubin 0.5 AST 15 ALT 20 Alkaline Phosphatase 63 Total Protein 6.9 Albumin 3.2 L Microbiology 09/01/17 15:40 Blood - Peripheral Venous Blood Culture - Preliminary NO GROWTH OBTAINED AFTER 72 HOURS, INCUBATION TO CONTINUE FOR 2 DAYS. 09/01/17 15:40 Blood - Peripheral Venous Blood Culture - Preliminary NO GROWTH OBTAINED AFTER 72 HOURS, INCUBATION TO CONTINUE FOR 2 DAYS. 09/02/17 18:00 Face Gram Stain - Final 09/02/17 18:00 Face Wound Culture - Preliminary Presumptive Mrsa (Pbp2a Pos) ASSESSMENT AND PLAN: 32 yof with gestational DM, here with right facial/periorbital-preseptal cellulitis with likely developing abscess secondary to popping a pimple. -Acute right facial/periorbital-preseptal cellulitis with likely developing abscess secondary to popping a pimple -h/o gestational DM, A1c 4.9 Plan: Improved. Warm compresses. Wound cx noted. ID input noted. Abx changed to clindamycin. ENT input noted. Discussed with Dr Sanchez, recommend OMFS input and I&D Discussed with Delmi, plan for transfer when bed available. DVTPPx, Plan discussed with patient in detail, all questions answered.
--- NOTE | 2017-09-04 18:05 | DS ---
Physical Exam: SUBJECTIVE: Patient seen and examined. Pt is able to open R eye more. No change in vision, no increased pain, no fevers or chills. OBJECTIVE: Vital Signs Period Temp Pulse Resp BP Sys/Vides Pulse Ox Last 24 Hr 98.3 F-98.7 F 63-78 18-21 115-122/61-81 98 PHYSICAL EXAM GENERAL: The patient is awake, alert, and fully oriented, in no acute respiratory distress. HEAD: R sided facial swelling EYES: PERRL, extraocular movements intact, swollen upper and lower eyelids. normal visual acuity, ENT: Pustular pimple R nasolabial angle. Swollen cheek and R eyelids. Marked reduced erythema around pustule. Improved upper and lower R eyelid swelling compared to the day before. LUNGS: Breath sounds equal, clear to auscultation bilaterally HEART: Regular rate and rhythm, S1, S2 . ABDOMEN: Soft, nontender, nondistended, normoactive bowel sounds EXTREMITIES: 2+ pulses, warm, well-perfused, no edema. NEUROLOGICAL: Cranial nerves II through XII grossly intact. Normal speech, normal gait, normal vision, Extraocular muscles intact LABS CBC, BMP 09/04/17 07:25 09/04/17 07:25 Laboratory Results - last 24 hr 09/04/17 09/04/17 07:25 07:25 WBC 6.7 D RBC 3.62 Hgb 11.4 Hct 33.7 MCV 93.2 MCH 31.5 MCHC 33.8 RDW 12.4 Plt Count 244 D MPV 9.1 Neutrophils % 52.1 D Lymphocytes % 33.2 D Monocytes % 9.1 Eosinophils % 4.8 H D Basophils % 0.8 Nucleated RBC % 0 Sodium 140 Potassium 4.0 Chloride 105 Carbon Dioxide 29 Anion Gap 6 L BUN 11 Creatinine 0.7 Creat Clearance w eGFR > 60 Random Glucose 76 Calcium 8.5 Phosphorus 4.2 Magnesium 2.3 Total Bilirubin 0.5 AST 15 ALT 20 Alkaline Phosphatase 63 Total Protein 6.9 Albumin 3.2 L Microbiology 09/01/17 15:40 Blood - Peripheral Venous Blood Culture - Preliminary NO GROWTH OBTAINED AFTER 72 HOURS, INCUBATION TO CONTINUE FOR 2 DAYS. 09/01/17 15:40 Blood - Peripheral Venous Blood Culture - Preliminary NO GROWTH OBTAINED AFTER 72 HOURS, INCUBATION TO CONTINUE FOR 2 DAYS. 09/02/17 18:00 Face Gram Stain - Final 09/02/17 18:00 Face Wound Culture - Preliminary Presumptive Mrsa (Pbp2a Pos) HOSPITAL COURSE: Date of Admission:09/01/17 Date of Discharge: 09/04/17 Prehospital course: 32yo woman with PMH of Gestational DM who presented to ED with 3 days of worsening R facial swelling after extracting pimple near R naso-labial fold. Pt received one dose of vancomycin and clindamycin iv in the ED. She was then continued on zosyn and clindamycin. Wound culture grew presumptive Mrsa. zosyn was stopped and pt continued on clindamycin pending sensitivities. While here, plastic surgeons, ENT and ophthalmology were consulted. They mostly recommended continuation of antibiotics. ENT recommended warm compress. Since the wound culture is growing Mrsa, we are transferring the patient to a skilled health care facility for advanced care with likely drainage of the pustule. Minutes to complete discharge: 37 Discharge Summary Reason For Visit: CELLULITIS OF FACE Current Active Problems Facial cellulitis (Acute) Condition: Stable - Instructions Diet, Activity, Other Instructions: You came in with a swelling on the R side of your face after pinching a pimple at the angle of your mouth and nose We started you on zosyn and clindamycin antibiotics The culture of the wound is now growing MRSA We have stopped the zosyn and you are continuing iv clindamycin at 600mg Q6H Since MRSA is a resistant organism, we are concerned about need for drainage of the pus under expert management and are transferring you to a tertiary center for more advanced care You may need to have surgery done to clear out the pus Avoid touching your face as much as possible to avoid spreading the infection further Take your medications as prescribed Follow up with your primary care doctor within a week after discharge Referrals: Ethan Parsons [Non Staff, Medical] - Disposition: TRANSFER ACUTE CARE/OTHER HOSP - Home Medications Comprehensive Discharge Medication List: Ambulatory Orders NK [No Known Home Medication] 09/01/17 This patient is new to me today: No Emergency Visit: Yes ED Registration Date: 09/01/17 Care time: The patient presented to the Emergency Department on the above date and was hospitalized for further evaluation of their emergent condition. Critical Care patient: No - Discharge Referral Referred to [facility] No
[2017-09-04 18:39] VITALS: BP 124/76; PULSE 78; TEMP 98.4
== END 2017-09-04 19:53 | disposition short-term general hospital (02) | DRG 383 ==
LOC: JERFT 13:59 → JER 13:59 → JERBED 18:25 → OBSVTOIN 20:45 → JERBED 09-02 08:58 → J6S 09-02 16:14 → J5S 09-04 17:35
PROVIDERS: ADMIT Internal Medicine; ATTEND Hospitalist
DX: L03.211 Cellulitis of face (principal); L02.01 Cutaneous abscess of face; Z86.32 Personal history of gestational diabetes
CPT/HCPCS: 36415; 70450-TC; 70486-TC; 80053; 82150; 83036; 83735; 84100; 84703; 85025; 85610; 87040; 87070; 87186; 87205; 93005; 93010; 99284-25; G0378; J1644

== ENCOUNTER 2018-07-23 14:53 | Emergency (ER) | payer OTHER ==
[2018-07-23 15:01] VITALS: BP 146/82; PULSE 68; TEMP 98.4; BMI 30.6
[2018-07-23] MEDS ORDERED: KETOROLAC TROMETHAMINE 60 MG/2 ML VIAL IM ONE (15:01)
--- NOTE | 2018-07-23 15:01 | PDOC ---
Rapid Medical Evaluation Chief Complaint: Headache Time Seen by Provider: 07/23/18 14:58 Medical Evaluation: Allergies Allergy/AdvReac Type Severity Reaction Status Date / Time No Known Drug Allergies Allergy Verified 09/01/17 14:16 berries, apples, cherries Allergy Severe anaphylaxis Uncoded 09/01/17 14:16 07/23/18 14:59 Pt c/o: frontal headache w/ou tvisual changes, worse throbbing pressure w/ movement Pt on brief exam: vss, no neurofocal deficits, perrl Pt ordered for: No imaging ordered (head CT 08/30 -). toradol IM Pt to proceed to the ED Discharge Disposition - Diagnosis Headache - Discharge Dispostion Condition at time of disposition: Stable - Referrals - Patient Instructions - Post Discharge Activity
[2018-07-23] MEDS ORDERED: KETOROLAC TROMETHAMINE 60 MG/2 ML VIAL ONE (16:27)
--- NOTE | 2018-07-23 16:32 | PDOC ---
History of Present Illness - General Chief Complaint: Headache Stated Complaint: HEADACHE Time Seen by Provider: 07/23/18 14:58 History Source: Patient Past History - Past Medical History Allergies/Adverse Reactions: Allergies Allergy/AdvReac Type Severity Reaction Status Date / Time No Known Drug Allergies Allergy Verified 09/01/17 14:16 berries, apples, cherries Allergy Severe anaphylaxis Uncoded 09/01/17 14:16 Home Medications: Ambulatory Orders Acetaminophen [Tylenol .Regular Strength -] 650 mg PO Q4H PRN tablet 09/04/17 Clindamycin 600Mg Premix Ivpb [Cleocin 600 mg Premix Ivpb -] 600 mg IV Q8HIV 7 Days bag 09/04/17 Heparin - 5,000 unit SQ TID vial 09/04/17 Anemia: No Asthma: No Cancer: No Cardiac Disorders: No CVA: No COPD: No CHF: No Dementia: No Diabetes: No GI Disorders: No Disorders: No HTN: No Liver Disease: No Seizures: No Thyroid Disease: No - Surgical History Abdominal Surgery: No Appendectomy: No Cardiac Surgery: No Cholecystectomy: No GI Surgery: Yes (gastric sleeve) Lung Surgery: No Neurologic Surgery: No Orthopedic Surgery: No - Reproductive History (#): 2 Para: 0 Therapeutic (s) & number: No Spontaneous : 1 - Immunization History Immunization Up to Date: No - Suicide/Smoking/Psychosocial Hx Smoking Status: No Smoking History: Never smoked Have you smoked in the past 12 months: No Number of Cigarettes Smoked Daily: 0 Cigars Per Day: 0 Information on smoking cessation initiated: No 'Breaking Loose' booklet given: 09/02/17 Hx Alcohol Use: No Drug/Substance Use Hx: No Hx Substance Use Treatment: No Review of Systems - Review of Systems Constitutional: No: Chills, Fever ABD/GI: No: Nausea, Vomiting, Abdominal cramping : Yes: Dysuria. No: Flank Pain, Hematuria Neurological: Yes: Headache, Dizziness *Physical Exam - Vital Signs Last Vital Signs Temp Pulse Resp BP Pulse Ox 98.4 F 68 18 146/82 98 07/23/18 14:58 07/23/18 14:58 07/23/18 14:58 07/23/18 14:58 07/23/18 14:58 - Physical Exam General Appearance: Yes: Appropriately Dressed. No: Apparent Distress HEENT: positive: Normal Voice Neck: positive: Supple Respiratory/Chest: negative: Respiratory Distress Gastrointestinal/Abdominal: positive: Soft. negative: Tender Musculoskeletal: negative: CVA Tenderness Integumentary: positive: Dry, Warm Neurologic: positive: tire wrapper II-XII NML intact, Fully Oriented, Alert, Normal Mood/ Affect, Motor Strength 5/5 Medical Decision Making - Medical Decision Making 07/23/18 16:31 33 yo male, denies any past medical history, here with diffuse pressure-like headache for the past 3 days that is mostly constant, 8/10, no exacerbating factors and minimally improved with tylenol. Also reports intermittent lightheadedness. No vertigo, visual changes, nausea, vomiting. No history of similar headaches. No recent trauma. Also complaining of dysuria for 2 days. No hematuria, flank pain, fever or chills See exam BURGOS No red flags at this time Stable and well thao a/ intact neuro exam -pain control -r/o preg Dysuria x 2 days No e/o pyelo -ua/cx pending 07/23/18 17:23 Upreg neg. +UTI on UA, ucx sent. Will dc w/ macrobid. PMD f/u if BURGOS persists *DC/Admit/Observation/Transfer Diagnosis at time of Disposition: Headache Qualifiers: Headache type: unspecified Headache chronicity pattern: acute headache Intractability: not intractable Qualified Code(s): R51 - Headache UTI (urinary tract infection) Qualifiers: Urinary tract infection type: acute cystitis Hematuria presence: without hematuria Qualified Code(s): N30.00 - Acute cystitis without hematuria - Discharge Dispostion Disposition: HOME Condition at time of disposition: Good - Referrals - Patient Instructions Printed Discharge Instructions: DI for Headache, Urinary Tract Infection Additional Instructions: You were started on antibiotics for UTI. Take Motrin or Tylenol [id number] for headache as needed and if pain persists, follow-up with your PMD - Post Discharge Activity
[2018-07-23 17:10] LABS: EPI CELLS 0.5 /HPF (0-5/HPF); PH,URINE 6.5 (5.0-8.0); URINE APPEARANCE CLEAR; URINE BACTERIA 1281.1 /hpf (NEGATIVE); URINE BILIRUBIN NEGATIVE (NEGATIVE); URINE CASTS 21 /hpf (0-8); URINE COLOR YELLOW; URINE GLUCOSE (UA) NEGATIVE (NEGATIVE); URINE KETONE 1+ (NEGATIVE); URINE LEUK ESTERASE 1+ (NEGATIVE); URINE NITRITE NEGATIVE (NEGATIVE); URINE PROTEIN NEGATIVE (NEGATIVE); URINE RBC 8 /hpf (0-4); URINE WBC 27 /hpf (0-5)
== END 2018-07-23 17:48 | disposition home or self-care (01) ==
LOC: JER 14:53
PROC: 3E0233Z Introduction of Anti-inflammatory into Muscle, Percutaneous Approach (ICD-10-PCS; principal; 2018-07-23)
DX: N30.00 Acute cystitis without hematuria (principal); R51 Headache
CPT/HCPCS: 81003; 84703; 96372; 99282-25

== ENCOUNTER 2020-05-24 08:00 | Inpatient (IN) | payer OTHER ==
[2020-05-24] MEDS ORDERED: ELECTROLYTE-148 SOLN 1,000 ML IV SCH (09:00)
[2020-05-24] MEDS ORDERED: CITRIC ACID/SODIUM CITRATE 30 ML UNIT-DOSE CUP PO ONE (09:01)
[2020-05-24 09:25] VITALS: BMI 38.4
[2020-05-24] MEDS ORDERED: PHENYLEPHRINE HCL 10 MG/1 ML SINGLE DOSE VIAL ONE (10:00)
[2020-05-24] MEDS ORDERED: ceFAZolin SODIUM 1 GM VIAL ONE (10:00)
[2020-05-24] MEDS ORDERED: morphine SULFATE/PF 0.5 MG/ML (2cc Syringe - QUVA) ONE (10:00)
[2020-05-24] MEDS ORDERED: DEXAMETHASONE SOD PHOSPHATE 4 MG/1 ML VIAL ONE (10:23)
[2020-05-24] MEDS ORDERED: OXYTOCIN 10 UNITS/ML VIAL ONE ×2 (10:23→10:46)
[2020-05-24] MEDS ORDERED: ONDANSETRON 4 MG/2 ML VIAL ONE (10:23)
[2020-05-24] MEDS ORDERED: ERYTHROMYCIN 0.5% OPHTHALMIC OINTMENT 3.5 GM TUBE OU ONE (10:41)
[2020-05-24] MEDS ORDERED: PHYTONADIONE NEONATAL 1 MG/0.5 ML AMP IM ONE (10:41)
[2020-05-24] MEDS ORDERED: KETOROLAC TROMETHAMINE 30 MG/1 ML VIAL ONE (11:06)
[2020-05-24 11:45] LABS: CORD HCO3 22.4 mmHg (20-29); CORD PCO2 100.2 mmHg (30-78)
[2020-05-24 11:46] LABS: CORD HCO3 22.8 mmHg (20-29)
[2020-05-24] MEDS ORDERED: ONDANSETRON 4 MG/2 ML VIAL IVPUSH PRN (11:49)
[2020-05-24 11:50] LABS: CORD pH 6.967 (7.14-7.44)
[2020-05-24] MEDS ORDERED: ACETAMINOPHEN 1000 MG/100 ML VIAL (NON FORMULARY) IVPB PRN (11:51)
[2020-05-24 11:52] LABS: CORD pH 6.901 (7.14-7.44)
[2020-05-24] MEDS ORDERED: WITCH HAZEL 50% (TUCKS) 40 PAD/JAR PAD TP PRN (11:54)
[2020-05-24] MEDS ORDERED: oxyCODONE HCL 5 MG TABLET PO PRN (11:54)
[2020-05-24] MEDS ORDERED: diphenhydrAMINE HCL 25 MG CAPSULE (FP) PO PRN (11:54)
[2020-05-24] MEDS ORDERED: METHYLERGONOVINE MALEATE 0.2 MG/1 ML AMP IM PRN (11:54)
[2020-05-24] MEDS ORDERED: BENZOCAINE 20% 57 GM BOTTLE TP PRN (11:54)
[2020-05-24] MEDS ORDERED: BENZOCAINE 28 GM HEMORRHOIDAL OINTMENT RC PRN (11:54)
[2020-05-24] MEDS ORDERED: DEXTROSE 5%-LACTATED RINGERS 1,000 ML IV SCH (12:00)
[2020-05-24] MEDS ORDERED: OXYTOCIN 20 UNITS in 0.9% NS 20 UNIT/1,000 ML INFUS.BAG IV SCH (12:00)
[2020-05-24] MEDS ORDERED: BENZOCAINE 28 GM HEMORRHOIDAL OINTMENT TP PRN (12:18)
[2020-05-24] MEDS ORDERED: OXYTOCIN 20 UNITS in 0.9% NS 20 UNIT/1,000 ML INFUS.BAG IV ONE (13:02)
[2020-05-24] MEDS: IBUPROFEN 800 MG/8 ML IJ IVPB PRN (16:50)
[2020-05-24] MEDS: CEFAZOLIN 1 GM/D5W 1 GM/50 ML BAG IVPB SCH (18:02)
[2020-05-25] MEDS: CEFAZOLIN 1 GM/D5W 1 GM/50 ML BAG IVPB SCH (01:12)
[2020-05-25] MEDS: IBUPROFEN 800 MG/8 ML IJ IVPB PRN ×2 (05:55→12:34)
[2020-05-25] MEDS: ENOXAPARIN NA (PORCINE) 40 MG/0.4 ML DISP.SYRIN SQ SCH (09:36)
[2020-05-25 10:18] LABS: BASO % 0.2 % (0-2.0); EOS % 0.3 % (0-4.5); HEMATOCRIT 24.2 % (32.4-45.2); HEMOGLOBIN 8.1 GM/dL (10.7-15.3); LYMPH % 10.8 % (8-40); MCH 30.6 pg (25.7-33.7); MCHC 33.7 g/dl (32.0-36.0); MEAN CELL VOLUME 90.8 fl (80-96); MONO % 8.3 % (3.8-10.2); NEUT % 80.4 % (42.8-82.8); PLATELET COUNT 148 K/MM3 (134-434); RBC 2.66 M/mm3 (3.60-5.2); WHITE BLOOD COUNT 10.6 K/mm3 (4.0-10.0)
[2020-05-25] MEDS ORDERED: BISACODYL 10 MG SUPP.RECT PR PRN (11:54)
[2020-05-25] MEDS: ACETAMINOPHEN 325 MG TABLET (FP) PO PRN ×2 (18:13→23:07)
[2020-05-25] MEDS: SIMETHICONE 80 MG TAB.CHEW (FP) PO PRN ×2 (18:14→23:12)
[2020-05-25] MEDS: IBUPROFEN 600 MG TABLET (FP) PO PRN (18:14)
[2020-05-26] MEDS: oxyCODONE HCL 5 MG TABLET PO PRN ×2 (01:57→23:43)
[2020-05-26] MEDS: IBUPROFEN 600 MG TABLET (FP) PO PRN ×2 (08:30→16:19)
[2020-05-26] MEDS: ACETAMINOPHEN 325 MG TABLET (FP) PO PRN ×3 (08:32→23:47)
[2020-05-26] MEDS: SIMETHICONE 80 MG TAB.CHEW (FP) PO PRN ×2 (08:34→21:50)
[2020-05-26] MEDS: ENOXAPARIN NA (PORCINE) 40 MG/0.4 ML DISP.SYRIN SQ SCH (09:48)
[2020-05-26] MEDS ORDERED: SENNOSIDES/DOCUSATE COMBO (SENNA PLUS) TABLET (UD) PO PRN (22:00)
[2020-05-27] MEDS: IBUPROFEN 600 MG TABLET (FP) PO PRN ×2 (06:39→11:50)
[2020-05-27] MEDS: ACETAMINOPHEN 325 MG TABLET (FP) PO PRN ×2 (06:40→11:50)
[2020-05-27 08:31] LABS: BASO % 0.3 % (0-2.0); EOS % 2.6 % (0-4.5); HEMATOCRIT 27.1 % (32.4-45.2); LYMPH % 11.6 % (8-40); MCH 30.2 pg (25.7-33.7); MCHC 33.2 g/dl (32.0-36.0); MEAN PLT VOLUME 9.5 fl (7.5-11.1); MONO % 10.5 % (3.8-10.2); PLATELET COUNT 219 K/MM3 (134-434); RBC 2.98 M/mm3 (3.60-5.2)
[2020-05-27] MEDS: ENOXAPARIN NA (PORCINE) 40 MG/0.4 ML DISP.SYRIN SQ SCH (11:39)
[2020-05-27] MEDS: SIMETHICONE 80 MG TAB.CHEW (FP) PO PRN (11:50)
[2020-05-27 13:51] VITALS: BP 131/87; PULSE 84; TEMP 98
== END 2020-05-27 15:40 | disposition home or self-care (01) | DRG 540 ==
LOC: JLDR 08:47 → J3W 14:13
PROVIDERS: ADMIT Obstetrics & Gynecology; ATTEND Obstetrics & Gynecology
PROC: 10D00Z1 Extraction of Products of Conception, Low, Open Approach (ICD-10-PCS; principal; 2020-05-24)
PROC: 0DNW0ZZ Release Peritoneum, Open Approach (ICD-10-PCS; 2020-05-24)
DX: O34.211 Maternal care for low transverse scar from previous cesarean delivery (principal); O48.0 Post-term pregnancy; O99.214 Obesity complicating childbirth; E66.9 Obesity, unspecified; O99.02 Anemia complicating childbirth; D64.9 Anemia, unspecified; N73.6 Female pelvic peritoneal adhesions (postinfective); Z37.0 Single live birth; Z3A.41 41 weeks gestation of pregnancy; Z98.84 Bariatric surgery status; Z98.890 Other specified postprocedural states; Z91.018 Allergy to other foods
CPT/HCPCS: 36415; 36600; 82803; 85025; 88304-TC; 88307-TC

== ENCOUNTER 2021-06-07 15:12 | Emergency (ER) | payer OTHER ==
[2021-06-07 15:31] VITALS: BMI 35.4
[2021-06-07] MEDS ORDERED: SODIUM CHLORIDE 0.9% 500 ML INFUS.BAG IV ONE (16:33)
[2021-06-07 18:33] LABS: BASO % 0.5 % (0-2.0); EOS % 1.1 % (0-4.5); HEMATOCRIT 37.9 % (32.4-45.2); HEMOGLOBIN 12.6 GM/dL (10.7-15.3); LYMPH % 29.1 % (8-40); MCH 29.4 pg (25.7-33.7); MCHC 33.3 g/dl (32.0-36.0); MEAN CELL VOLUME 88.4 fl (80-96); MEAN PLT VOLUME 8.8 fl (7.5-11.1); NEUT % 60.3 % (42.8-82.8); PLATELET COUNT 302 10^3/uL (134-434); RBC 4.29 M/mm3 (3.60-5.2); RDW 13.9 % (11.6-15.6)
[2021-06-07 18:51] LABS: CALCIUM 9.4 mg/dL (8.5-10.1)
[2021-06-07 18:52] LABS: ALBUMIN 4.1 g/dl (3.4-5.0); BLOOD UREA NITROGEN 10.8 mg/dL (7-18)
[2021-06-07 18:55] LABS: CREATININE 0.6 mg/dL (0.55-1.3)
[2021-06-07 18:57] LABS: BILIRUBIN,TOTAL 0.2 mg/dL (0.2-1); TOT PROT 7.9 g/dl (6.4-8.2)
[2021-06-07 20:05] LABS: PH,URINE 6.5 (5.0-8.0); URINE APPEARANCE CLEAR; URINE BILIRUBIN NEGATIVE (NEGATIVE); URINE COLOR YELLOW; URINE GLUCOSE (UA) NEGATIVE (NEGATIVE); URINE KETONE NEGATIVE (NEGATIVE); URINE LEUK ESTERASE NEGATIVE (NEGATIVE); URINE NITRITE NEGATIVE (NEGATIVE); URINE PROTEIN NEGATIVE (NEGATIVE); URINE UROBILINOGEN 0.2 mg/dL (0.2-1.0)
[2021-06-07 21:02] VITALS: BP 141/96; PULSE 91
== END 2021-06-07 21:23 | disposition home or self-care (01) ==
LOC: JER 15:12
DX: R42 Dizziness and giddiness (principal)
CPT/HCPCS: 36415; 80053; 81003; 82550; 82962; 84484; 84703; 85025; 93005; 93010; 99284-25